=== PATIENT | female | born 1990 | race Hispanic/Latino ===

== ENCOUNTER 2024-08-28 05:59 | Day surgery (SDC) | payer OTHER ==
[~2024-08-28] VITALS: Ht 167.6 cm; Wt 65.8 kg
[2024-08-28] VITALS (10 sets, daily range): BP systolic 97–118; BP diastolic 56–79; PULSE 59–73; RESP 15–17; TEMP 96.7–97.9
[2024-08-28] MEDS: 0.9%NACL 1000ML 1,000 ML IV ONE (06:45)
[2024-08-28] MEDS ORDERED: proPOFol 10 MG/ML 20ML VIAL IV ONE (07:26)
== END 2024-08-28 08:30 ==
LOC: DAH 05:59 → ENDO 05:59
PROVIDERS: ATTEND Internal Medicine Gastroenterology
DX: R10.13 Epigastric pain (principal); K29.50 Unspecified chronic gastritis without bleeding; R14.0 Abdominal distension (gaseous); R11.0 Nausea; Z98.51 Tubal ligation status; Z79.899 Other long term (current) drug therapy
CPT/HCPCS: 81025; 43239; J7030 ×2; J2704; A4620; A7002; J3490